=== PATIENT | female | born 2000 | race Caucasian/White ===

== ENCOUNTER 2023-07-09 09:12 | Inpatient (IN) | payer MEDICARE, OTHER ==
[2023-07-09] MEDS ORDERED: Nubain 10 MG/ML IV PRN (15:51)
[2023-07-09] MEDS ORDERED: Lactated Ringers 1,000 ML IV ONE (15:51)
[2023-07-09] MEDS ORDERED: Ephedrine Sulfate 50 MG/ML IV PRN (15:51)
[2023-07-09] MEDS ORDERED: STADOL 2 MG IV PRN (15:51)
[2023-07-09] MEDS ORDERED: FENTANYL 2 MCG-BUPIV 0.125%-NS 250 ML Epidur 250 ML EPIDURAL SCH (16:00)
[2023-07-09] MEDS ORDERED: PITOCIN 30 UNITS/ LR 500 ML 30 UNITS/500 ML PLAST..BAG IV SCH (16:00)
[2023-07-09 17:45] LABS: Absolute Neutrophil Ct (ANC) 7.79 x10^3/uL (1.4-6.9); BASOPHIL % 0.6 % (0.0-0.4); Basophil (Absolute #) 0.06 x10^3/uL (0-0.4); Eosinophil % 0.8 % (0.00-5.0); Eosinophil (Absolute #) 0.08 x10^3/uL (0-0.5); Hematocrit 35.8 % (35-47); Hemoglobin 11.9 g/dL (12.0-16.0); IMMATURE GRAN # 0.11 x10^3u/L (0.00-0.03); Lymphocyte (Absolute #) 1.72 x10^3/uL (1.0-4.6); Lymphocytes % 16.2 % (24.0-44.0); Mean Cell Volume 90.2 fL (78-100); Mean Corpuscular Hgb Concent. 33.2 g/dL (32-36); Mean Platelet Volume 11.5 fL (7.5-11.0); Monocyte (Absolute #) 0.87 x10^3/uL (0.0-1.3); Monocytes % 8.2 % (0.0-12.0); Neutrophil % 73.2 % (36.0-66.0); Platelet Count 189 x10^3/uL (150-450); Red Blood Count 3.97 x10^6/uL (4.1-5.4); Red Cell Distribution Width 13.5 % (11.5-14.0); White Blood Count 10.6 x10^3/uL (4.0-10.5)
[2023-07-09 18:34] LABS: Amphetamine,Urine NEGATIVE (NEGATIVE); Barbiturate,Urine NEGATIVE (NEGATIVE); Benzodiazepine,Urine NEGATIVE (NEGATIVE); Cocaine,Urine NEGATIVE (NEGATIVE); Methadone,Urine NEGATIVE (NEGATIVE); Opiate,Urine NEGATIVE (NEGATIVE); PCP,Urine NEGATIVE (NEGATIVE); THC,Urine NEGATIVE (NEGATIVE)
[2023-07-09] MEDS: CYTOTEC PO SCH ×3 (18:36→22:34)
[2023-07-09 18:43] LABS: ABO TYPING O; Antibody Screen NEGATIVE (NEGATIVE); RH TYPING POSITIVE
[2023-07-10] MEDS: CYTOTEC PO SCH ×4 (00:40→06:28)
[2023-07-10] MEDS: Lactated Ringers 1,000 ML IV SCH ×3 (06:16→13:46)
[2023-07-10] MEDS ORDERED: PITOCIN 30 UNITS/ LR 500 ML 30 UNITS/500 ML PLAST..BAG IV SCH (07:30)
[2023-07-10] MEDS ORDERED: DEXMEDETOMIDINE 80 MCG/20ML-NS IV ONE (10:57)
[2023-07-10] MEDS ORDERED: XYLOCAINE 2%/Epi 1:200000 20ML VIAL MPF ONE (13:36)
[2023-07-10] MEDS ORDERED: SUBLIMAZE 100 MCG/2 ML ONE (13:37)
[2023-07-10] MEDS ORDERED: Lactated Ringers 1,000 ML IV ONE (13:38)
[2023-07-10] MEDS ORDERED: Reglan 10 MG/2 ML IV SCH (13:45)
[2023-07-10] MEDS ORDERED: SOD CITRATE-CITRIC ACID SOLN PO SCH (13:45)
[2023-07-10] MEDS ORDERED: Pepcid 20 MG VIAL IV SCH (13:45)
[2023-07-10 13:54] LABS: Appearance Clear (Clear); Bilirubin Negative (Negative); Blood Small (Negative); Glucose, Urine Negative (Negative); Ketones 15 (Negative); Leukocyte Esterase Negative (Negative); Nitrite Negative (Negative); Ph 7.5 (4.6-8.0); Protein,Urine Dip Negative (Negative); Specific Gravity <=1.005 (1.005-1.030); Urobilinogen 0.2 mg/dL (0.2)
[2023-07-10] MEDS ORDERED: CEFAZOLIN 2 GM-D5W BAG** 2 GM/50 ML ML IV SCH (14:00)
[2023-07-10] MEDS ORDERED: Lactated Ringers 1,000 ML IV SCH (14:00)
[2023-07-10 14:10] LABS: Hemoglobin 13.3 g/dL (12.0-16.0); Mean Cell Volume 92.1 fL (78-100); Mean Corpuscular Hemoglobin 29.9 pg (26-32); Mean Corpuscular Hgb Concent. 32.4 g/dL (32-36); Platelet Count 156 x10^3/uL (150-450); Red Blood Count 4.45 x10^6/uL (4.1-5.4); Red Cell Distribution Width 13.6 % (11.5-14.0)
[2023-07-10 14:13] LABS: INR 0.89 (0.8-3.0); PROTIME 9.8 SECONDS (9.4-12.5); PTT 27.1 SECONDS (25.1-36.5)
[2023-07-10] MEDS ORDERED: Decadron 4 MG INJ ONE (14:21)
[2023-07-10] MEDS ORDERED: Pitocin 10 UNITS/ML ONE (14:21)
[2023-07-10] MEDS ORDERED: Marcaine 0.5%/Epinephrine 10 ML ONE (14:21)
[2023-07-10] MEDS ORDERED: Astramorph-Pf 5 MG/10 ML ONE (14:22)
[2023-07-10 14:24] LABS: ADD URINE CULTURE? NO (NO); Bacteria None Seen /HPF (None Seen); Epithelial Cells None Seen /HPF (None Seen); RBC NONE SEEN /HPF (0-5); WBC 0-2 /HPF (0-5)
[2023-07-10 14:38] LABS: Slide Review YES
[2023-07-10] MEDS ORDERED: Zofran 4 MG/2 ML VIAL ONE (15:12)
[2023-07-10] MEDS ORDERED: DEMEROL 50 MG ONE (15:19)
[2023-07-10] MEDS ORDERED: Adacel Vial IM ONE (16:33)
[2023-07-10] MEDS ORDERED: Mylicon 80MG PO PRN (16:33)
[2023-07-10] MEDS ORDERED: LANSINOH 40 GM TOP PRN (16:33)
[2023-07-10] MEDS ORDERED: BENADRYL 50 MG/ML IV PRN (16:36)
[2023-07-10] MEDS ORDERED: Narcan 0.4 MG/ML IV PRN (16:36)
[2023-07-10] MEDS ORDERED: PERCOCET TABLET 5/325MG PO PRN (16:36)
[2023-07-10] MEDS ORDERED: Nubain 10 MG/ML IV PRN (16:36)
[2023-07-10] MEDS: Zofran 4 MG/2 ML VIAL IV PRN ×2 (17:52→23:31)
[2023-07-11] MEDS: MOTRIN 400 MG PO PRN ×2 (05:04→22:03)
[2023-07-11 05:13] LABS: Absolute Neutrophil Ct (ANC) 13.77 x10^3/uL (1.4-6.9); BASOPHIL % 0.3 % (0.0-0.4); Basophil (Absolute #) 0.05 x10^3/uL (0-0.4); Eosinophil % 0.1 % (0.00-5.0); Eosinophil (Absolute #) 0.01 x10^3/uL (0-0.5); Hematocrit 32.5 % (35-47); Hemoglobin 10.6 g/dL (12.0-16.0); IMMATURE GRAN # 0.13 x10^3u/L (0.00-0.03); IMMATURE GRAN % 0.8 % (0.00-0.4); Lymphocyte (Absolute #) 1.26 x10^3/uL (1.0-4.6); Lymphocytes % 7.6 % (24.0-44.0); Mean Cell Volume 90.5 fL (78-100); Mean Corpuscular Hemoglobin 29.5 pg (26-32); Mean Corpuscular Hgb Concent. 32.6 g/dL (32-36); Mean Platelet Volume 11.8 fL (7.5-11.0); Monocyte (Absolute #) 1.38 x10^3/uL (0.0-1.3); Monocytes % 8.3 % (0.0-12.0); Neutrophil % 82.9 % (36.0-66.0); Platelet Count 188 x10^3/uL (150-450); Red Blood Count 3.59 x10^6/uL (4.1-5.4); Red Cell Distribution Width 13.3 % (11.5-14.0); White Blood Count 16.6 x10^3/uL (4.0-10.5)
--- NOTE | 2023-07-11 08:04 | OP ---
SURGERY DATE/TIME: 07/10/2023 9889 PREOPERATIVE DIAGNOSES: 1) Nonreassuring heart tone. 2) Term intrauterine . POSTOPERATIVE DIAGNOSES: 1) Nonreassuring heart tone. 2) Term intrauterine . 3) True knot in the umbilical cord. PROCEDURE: Primary low transverse section. SURGEON: Ney Sanchez M.D. ANESTHESIA: Epidural by Cr Calixto CRNA. QUANTITATIVE BLOOD LOSS: 500 ml. SPECIMEN: Placenta was sent for pathology. DESCRIPTION OF PROCEDURE: The patient was induced electively at 39 weeks and developed persistent late decelerations during laboring phase and had progressed to 5 to 6 cm dilatation. Therefore presented for primary low transverse section. I discussed the risks, benefits and alternatives including risk of bleeding, infection and damage to surrounding organs and tissues. The patient and her elected to proceed. She had a previously placed laboring epidural which was dosed. She was taken to the OR, prepped and draped in the usual sterile fashion. After adequate level of anesthesia was assessed, a low transverse skin incision was made by knife and carried down through the subcutaneous fat to the level of the fascia. The fascia was nicked on both sides of the midline in horizontal fashion with curved Quintanilla scissors. The superior free edge of the fascia was grasped with Trisha clamps and the underlying rectus muscles were dissected free. The same was repeated inferiorly. The peritoneal cavity was opened and distended horizontal in blunt fashion. A bladder flap was then created and reflected over the lower uterine segment. Horizontal uterine incision was made by knife and carried down to the level of the amniotic membranes which were carefully artificially ruptured which revealed clear fluid. A viable female was delivered from the vertex presentation with a strong cry immediately upon delivery. The cord was clamped, cut and she was handed off to the awaiting nursery team. The placenta was manually extracted and the uterus and the uterus was exteriorized. The uterine cavity was sponge curetted clean with a lap sponge. The uterine incision is closed with #1 chromic in running locked fashion. Good closure and good hemostasis were achieved at this level. The posterior cul-de-sac was wiped free of blood and clot with moist lap sponge and the uterus was returned to the peritoneal cavity. The lateral gutters were wiped free of blood and clot and again the uterine incision was noted to be hemostatic. OR staff confirmed that there was straw-colored yellow urine in the Mayen that was clear. Next, the fascia was closed with 0 Vicryl in a running fashion with good closure and good hemostasis achieved at that level. The subcutaneous fat was irrigated with warm, sterile saline and any areas of bleeding were cauterized with electrocautery. Finally, the skin layer was closed with 4-0 undyed Vicryl in a running subcuticular fashion. Steri-Strips and occlusive dressing were placed over the incision. The patient was transferred to the recovery room in good condition.
[2023-07-11] MEDS: Docusate Sodium 100 MG PO SCH ×2 (09:10→22:03)
[2023-07-11] MEDS: FERREX 150 PO SCH (09:10)
[2023-07-11] MEDS: TYLENOL EXTRA STRENGTH 500 MG PO PRN (12:32)
[2023-07-12 03:29] VITALS: O2SAT 98
[2023-07-12 08:32] VITALS: RESP 16
[2023-07-12] MEDS: Docusate Sodium 100 MG PO SCH (08:53)
[2023-07-12] MEDS: FERREX 150 PO SCH (08:53)
--- NOTE | 2023-07-12 10:54 | PCM.DS ---
Discharge Summary Date of Admission: 07/10/23 09:12 Admitting Physician: ADAM NICHOLAS Consults: Consults on Case 07/10/23 13:38 Notify Anesthesia Provider ROUTINE 07/10/23 13:39 Notify Physician OF ADMISSION 07/10/23 16:37 Notify Anesthesia Provider PRN 07/10/23 20:55 Navigation ONCE Primary Care Provider: ADAM NICHOLAS Allergies Allergies No Known Drug Allergies Allergy (Verified 07/10/23 07:14) Hospital Summary - Hospital Course Hospital Course: mom admitted for elective induction at 39wks, uncomplicated . developed nonreassuring heart tracing during labor so had primary , doing great . mild lochia, pain controlled with ibuprofen. feels well - Vitals & Intake/Output Vital Signs: Vital Signs Temperature 98.2 F 07/12/23 08:00 Pulse Rate 80 07/12/23 08:00 Respiratory Rate 16 07/12/23 08:00 Blood Pressure 117/78 07/12/23 08:00 O2 Sat by Pulse Oximetry 98 07/12/23 08:00 Intake & Output: Intake & Output 07/09/23 07/10/23 07/11/23 07/12/23 11:59 11:59 11:59 11:59 Intake Total 2420 2170 1450 Output Total 500 2900 206 Balance 1920 -730 1244 Weight 198 kg 198 kg - Lab Result Diagrams: 07/11/23 04:10 Micro Results-Entire Visit: Microbiology 07/10/23 11:45 Urine Culture - Final Catherized NO GROWTH - Procedures and Test Procedures and Tests throughout Hospitalization: Therapy Orders & Screens 07/10/23 15:38 Standby STAT Comment: Diagnosis: IUP Discharge Exam General Appearance: no apparent distress Neurologic Exam: alert, oriented x 3 Respiratory Exam: normal breath sounds, lungs clear, No respiratory distress Cardiovascular Exam: regular rate/rhythm, normal heart sounds Gastrointestinal/Abdomen Exam: soft, other (fundus firm, dressing c/d/i and well approximated, will remove in office 1 wk postop) Extremity Exam: normal inspection, normal range of motion Skin Exam: normal color, warm, dry Final Diagnosis/Problem List - Final Discharge Diagnosis/Problem (1) delivery delivered Current Visit: Yes Status: Acute Code(s): O82 - ENCOUNTER FOR DELI VERY WITHOUT INDICATION (2) () Current Visit: Yes Status: Acute Code(s): Z78.9 - OTHER SPECIFIED HEALTH STATUS - Discharge Disposition: Home, Self-Care Condition: Stable Prescriptions: Continue Levothyroxine Sodium 100 Mcg [Synthroid 100 Mcg] 100 mcg PO DAILY Vit No.179/Iron/Folic [ Tablet] 1 PO DAILY Additional Instructions: Call to schedule OB follow up appointment with chosen provider. Call for any questions or concerns. Follow up with: ADAM NICHOLAS MD [Primary Care Provider] - 1 Week Forms: OB Discharge Instructions, Safe Sleep Education
[2023-07-12] MEDS: MOTRIN 400 MG PO PRN (11:41)
[2023-07-12 14:34] VITALS: BP 122/78; PULSE 78; TEMP 98.1
[2023-07-12] MEDS: TYLENOL EXTRA STRENGTH 500 MG PO PRN (16:11)
== END 2023-07-12 16:50 | disposition home or self-care (01) | DRG 788 ==
LOC: OB 09:12 → OBSVTOIN 07-10 09:12
PROVIDERS: ADMIT Family Medicine; ATTEND Family Medicine
PROC: 10D00Z1 Extraction of Products of Conception, Low, Open Approach (ICD-10-PCS; principal; 2023-07-10)
DX: O76 Abnormality in fetal heart rate and rhythm complicating labor and delivery (principal); O69.2XX0 Labor and delivery complicated by other cord entanglement, with compression, not applicable or unspecified; Z37.0 Single live birth; Z3A.39 39 weeks gestation of pregnancy; Z20.828 Contact with and (suspected) exposure to other viral communicable diseases
CPT/HCPCS: 36415; 64488; 76937; 76942; 80307; 81001; 85025; 85027; 85610; 85730; 86850; 86900; 86901; 87086; 94799; G0378; G0379; J0690; J1100; J2175; J2274; J2405; J2590; J3010; L0625; A9270-GY